=== PATIENT | female | born 1950 | race Caucasian/White ===

== ENCOUNTER 2018-04-22 11:24 | Emergency (ER) | payer OTHER, MEDICARE ==
--- NOTE | 2018-04-22 11:59 | CR ---
Knee 1V or 2V Lt CLINICAL HISTORY: Left knee pain, trauma FINDINGS: There is a moderately comminuted displaced fracture of the proximal tibia. There is also co mminuted fracture of the proximal fibula. The femur appears intact. Patella is intact. There is a hem arthrosis Impression: Comminuted displaced fracture of the proximal tibia and fibula
--- NOTE | 2018-04-22 12:27 | EDM.PDOC ---
ED HPI GENERAL MEDICAL PROBLEM - General Chief Complaint: Lower Extremity Injury/Pain Stated Complaint: MEDICAL VIA [facility] Time Seen by Provider: 04/22/18 11:45 Source of Information: Reports: Patient, EMS History Limitations: Reports: No Limitations - History of Present Illness INITIAL COMMENTS - FREE TEXT/NARRATIVE: 67-year-old female with a lower left extremity injury. She is usually healthy, was standing and stepped back and missed a step and jammed and twisted her leg into some sand and then fell. She felt a pop or a snap in her leg, and now has deformity and inability to bear weight. Normal movement of the toes and normal sensation distally. She was brought in by EMS. 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: Musculoskeletal History: Reports: Fracture - Past Surgical History Musculoskeletal Surgical History: Reports: Other (See Below) Other Musculoskeletal Surgeries/Procedures:: left ankle Social & Family History - Tobacco Use Smoking Status *Q: Never Smoker - Caffeine Use Caffeine Use: Reports: None - Recreational Drug Use Recreational Drug Use: No Review of Systems - Review of Systems Review Of Systems: See Below Constitutional: Denies: Fever Respiratory: Denies: Shortness of Breath Cardiovascular: Denies: Chest Pain GI/Abdominal: Denies: Abdominal Pain Skin: Reports: Bruising (A small amount of bruising is forming over the swollen area) Neurological: Reports: No Symptoms ED EXAM, GENERAL - Physical Exam Exam: See Below Exam Limited By: No Limitations General Appearance: Alert, No Apparent Distress Respiratory/Chest: No Respiratory Distress Cardiovascular: Regular Rate, Rhythm Extremities: Other (Remainder of exam is limited to the left lower extremity. There is tense swelling just distal patella, with some valgus deformity of the leg. Distal CS is normal) Course - Vital Signs Last Recorded V/S: Last Vital Signs Temp 98.1 F 04/22/18 16:25 Pulse 95 04/22/18 16:25 Resp 18 04/22/18 16:25 BP 153/72 H 04/22/18 16:25 Pulse Ox 98 04/22/18 16:25 - Orders/Labs/Meds Meds: Medications Discontinued Medications Generic Name Dose Route Start Last Admin Trade Name Oren PRN Reason Stop Dose Admin Sodium Chloride 1,000 mls @ 1,000 mls/hr 04/22/18 13:30 04/22/18 14:12 Normal Saline IV 1,000 mls/hr ASDIRECTED DIANA Administration Propofol 80 mg 04/22/18 12:28 04/22/18 14:12 Diprivan 20 Ml IVPUSH 04/22/18 12:29 80 mg ONETIME ONE Administration - Re-Assessments/Exams Free Text/Narrative Re-Assessment/Exam: 04/22/18 12:26 An x-ray was done which confirmed a comminuted fracture of the proximal fibula as well as a displaced proximal fibula fracture. The pictures were sent to [facility] surgeon on-call, he recommended external fixation today to reduce the risk of complete department syndrome. X-rays were then sent to orthopedics from [place]. Patient was given IV propofol, countertraction was applied and a knee immobilizer. 04/22/18 16:33 After conversations with orthopedics from [place], [facility], and [facility], all orthopedics services requested and advised that the patient to go to [facility] for trauma surgery. Dr. Day of [facility] emergency services accepted the patient. Patient will be transported by ground. Departure - Departure Time of Disposition: 16:20 Disposition: DC/Tfer to Acute Hospital 02 Condition: Fair Clinical Impression: Fracture of tibia, closed Qualifiers: Encounter type: initial encounter Tibia location: both condyles Fracture alignment: displaced Laterality: left Qualified Code(s): S82.142A - Displaced bicondylar fracture of left tibia, initial encounter for closed fracture Fracture, fibula Qualifiers: Encounter type: initial encounter Fibula location: proximal Fracture type: closed Fracture morphology: unspecified fracture morphology Laterality: left Qualified Code(s): S82.832A - Other fracture of upper and lower end of left fibula, initial encounter for closed fracture - Discharge Information Referrals: PCP,None [Primary Care Provider] - Forms: ED Department Discharge Care Plan Goals: Patient is being transferred to [facility] for trauma surgery to the left comminuted femoral fracture.
[2018-04-22] MEDS ORDERED: Propofol 200 MG/20 ML SDV IVPUSH ONE (12:28)
[2018-04-22] MEDS ORDERED: Sodium Chloride 0.9% 1,000 ML IV SCH (13:30)
--- NOTE | 2018-04-22 14:35 | CR ---
Knee 1V or 2V Lt CLINICAL HISTORY: Tibial and fibular fracture, post reduction FINDINGS: There is some decrease in displacement of the lateral aspect of the tibial plateau fracture IMPRESSION: Status post reduction of comminuted displaced tibial fracture
--- NOTE | 2018-04-22 21:26 | CONS ---
DATE OF SERVICE: 04/22/2018 REFERRING PHYSICIAN: Evaristo Morgan MD CONSULTING PHYSICIAN: KOKO Taylor DIAGNOSIS: Schatzker fracture, tibial plateau, left, and closed reduction and splinting and refer to other facility for further management. The patient is a 67-year-old lady who is visiting from [place], had a fall. She landed up on her back, her foot was in awkward position and she heard a pop. After that, her knee started bothering, and she was brought to [facility] Emergency Room. The patient was seen by ER physician and then Ortho was consulted. The patient is otherwise healthy. She takes a medication for hypertension. She had calcaneus surgery on the left foot, and stripping of her varicose vein in the past. On examination, the patient was resting comfortably, left knee in flexed position. There is a swelling in the proximal part of the tibia. The patient is able to move the toes. She had a good pulsation and good sensation of the feet. She can dorsiflex and plantarflex the ankle and foot without any difficulty. Her compartment was soft. Her distal neurovascular structures were intact. X-ray was reviewed which showed that she has a Schatzker type of fracture and her left tibial plateau was completely displaced and medial femoral condyle was stuck into the fracture site. At that time, we had a discussion with the patient that first we should put a splint on that side which can be done after giving sedation, and then she will need an external fixator for another 1 to 2 weeks once the skin condition settles down and surgery can be done. She will require surgery from a dual approach made posterior medial and lateral side and after the fixator is done. After the fixator is done, CT scan will be required to see the fracture position. After conscious sedation was given by Dr. Morgan, her closed reduction of the fracture was done and the splint was applied. After the closed reduction, x-ray of the proximal tibia looks much better. Postreduction, her pulse was still present and neurovascularly she was intact. The patient was initially advised to go to [place] for external fixator application, but we do not have a bed in [place], they are trying hard to send out to either [place] or [place]. KOKO Taylor /[id number]
== END 2018-04-22 18:00 ==
LOC: JP.ED 11:24
DX: S82.142A Displaced bicondylar fracture of left tibia, initial encounter for closed fracture (principal); X50.1XXA Overexertion from prolonged static or awkward postures, initial encounter; Z88.1 Allergy status to other antibiotic agents
CPT/HCPCS: 27752; 73560; 96360; 99152; 99284; 99285; J2704; J7030